=== PATIENT | female | born 1970 | race Two or more races ===

== ENCOUNTER → 2024-07-08 | Outpatient (CLI) | payer MEDICAID, SELFPAY ==
--- NOTE | 2024-07-08 12:45 | XR_ITS ---
Examination: MRI abdomen with intravenous contrast. MRI abdomen without intravenous contrast. Date and time of exam: July 08, 2024 1427 hours INDICATIONS: Left lower abdomen palpable mass and swelling several months Technique: Multiple axial, sagittal and coronal sections of the abdomen obtained. Transverse images, TR 6020, TE 107. T1 weighted transverse images, TR 582, TE 9.5. T2-weighted sagittal images, TR 4000, TE 105. T2-weighted sagittal images, TR 4000, TE 5. Coronal images, TR 4210, TE 107. Axial and coronal images are obtained post 20 cc intravenous injection, gadolinium. Findings: Hepatomegaly 17 cm No focal liver lesions or intrahepatic biliary tract dilatation Contracted gallbladder no stones noted Common hepatic duct common bile duct normal size no stones No pancreatic mass No dilated pancreatic duct or peripancreatic edema Normal adrenal glands No bowel obstruction 12 mm fat-containing umbilical hernia Spleen is not enlarged No ascites Postcontrast images demonstrate no abnormal enhancing liver or splenic lesions No enhancing renal or pancreatic mass No periaortic pericaval lymphadenopathy IMPRESSION: Hepatomegaly, 17 cm No focal liver lesions intra or extrahepatic biliary tract dilatation Negative for pancreatitis Negative for ascites 12 mm fat-containing umbilical hernia If symptoms persist, consider CT scan abdomen pelvis post intravenous contrast follow-up
== END | disposition home or self-care (01) ==
PROVIDERS: PCP Nurse Practitioner Family; Referring Provider Nurse Practitioner Family; Visit Provider Nurse Practitioner Family
DX: R16.0 Hepatomegaly, not elsewhere classified (principal); K42.9 Umbilical hernia without obstruction or gangrene
CPT/HCPCS: 74183; A9579